=== PATIENT | female | born 1985 | race Caucasian/White ===

== ENCOUNTER 2016-09-11 17:58 | Emergency (ER) | payer MEDICAID ==
[2016-05-05 05:57] VITALS: BMI 17.4
[~2016-09-11 17:58] MED LIST: ALDACTONE50 MG PO; ATIVAN1 MG; INDERAL10 MG PO; MIRALAX17 GM PO; TRANXENE7.5 MG PO; ZYPREXA10 MG PO
[2016-09-11 19:13] LABS: BASOPHILS 0.4 % (0-2); EOSINOPHILS 0.8 % (0-7); HEMATOCRIT 34.4 % (36.0-48.0); HEMOGLOBIN 11.8 g/dL (12-16); IMMATURE GRANULOCYTES 0.2 % (0-5); LYMPHOCYTES 24.8 % (15-50); MCH 31.6 pg (26.0-34.0); MCHC 34.3 g/dL (31.0-37.0); MEAN PLATELET VOLUME 9.2 fL (7.4-10.4); MONOCYTES 8.4 % (2-11); NEUTROPHILS 65.4 % (40-80); RBC 3.74 10x6/uL (4.00-5.40); RDW 12.3 % (11.5-14.5)
[2016-09-11 19:14] LABS: PLATELET COUNT 382 10x3/uL (130-400)
[2016-09-11 19:26] LABS: HCG URINE NEGATIVE (NEGATIVE)
[2016-09-11 19:37] LABS: APPEARANCE HAZY (CLEAR); BILIRUBIN NEGATIVE (NEGATIVE); COLOR YELLOW (YELLOW); GLUCOSE NEGATIVE (NEGATIVE); KETONE NEGATIVE (NEGATIVE); LEUKOCYTE ESTERASE TRACE (NEGATIVE); NITRITE NEGATIVE (NEGATIVE); PROTEIN NEGATIVE (NEGATIVE); SPECIFIC GRAVITY 1.015 (1.005-1.020); UROBILINOGEN NORMAL (NORMAL)
[2016-09-11 19:39] LABS: BACTERIA MODERATE /hpf (NONE SEEN); CALCIUM OXALATE CRYSTALS 0-5 /hpf (NONE SEEN); EPITHELIAL CELLS 0-5 /hpf (0-5); MUCUS >1+ /lpf (NONE SEEN); RED CELLS - URINE 0-5 /hpf (0-5); WHITE CELLS - URINE 0-5 /hpf (0-5)
[2016-09-11 19:45] LABS: ALBUMIN 4.2 g/dL (3.4-5.0); ALKALINE PHOSPHATASE 56 U/L (46-116); ALT (SGPT) 29 U/L (10-68); AMYLASE - SERUM 67 U/L (25-115); BILIRUBIN - TOTAL 0.59 mg/dL (0.2-1.3); CALC OSMOLALITY 279 mosm/kg (275-300); CALCIUM 10.5 mg/dL (8.5-10.1); CARBON DIOXIDE 27.6 mmol/L (21.0-32.0); CHLORIDE - SERUM 102 mmol/L (98-107); CREATININE - SERUM 0.9 mg/dL (0.6-1.3); GLUCOSE 93 mg/dL (74-106); LIPASE 306 U/L (73-393); POTASSIUM - SERUM 3.9 mmol/L (3.5-5.1); SODIUM 140 mmol/L (136-145); UREA NITROGEN 15 mg/dL (7-18); eGFR NON AFRICAN AMERICAN 77 mL/min (90-120)
== END 2016-09-11 22:18 | disposition home or self-care (01) ==
LOC: D.ER 17:58
PROVIDERS: Nurse Practitioner Family
DX: E86.0 Dehydration (principal); G89.18 Other acute postprocedural pain; I10 Essential (primary) hypertension; K59.00 Constipation, unspecified

== ENCOUNTER 2016-09-22 05:15 | Day surgery (SDC) | payer MEDICAID ==
[~2016-09-22] VITALS: Ht 160 cm; Wt 43.1 kg
--- NOTE | ~2016-09-22 | OP ---
PATIENT NAME: NEGRO BUCK MEDICAL RECORD: [id number] :83 LOCATION:D.OPS ADMISSION DATE: SURGEON: ANTONIA OROZCO MD DATE OF OPERATION: 09/22/2016 PREOPERATIVE DIAGNOSIS: Retraction of previous Pfannenstiel skin incision. POSTOPERATIVE DIAGNOSIS: Retraction of previous Pfannenstiel skin incision. PROCEDURE: Revision of Pfannenstiel scar. SURGEON: Antonia Orozco MD ESTIMATED BLOOD LOSS: 50 cc. INTRAVENOUS FLUIDS: Per anesthesia record. PROCEDURE: The patient was taken to the operating room where general anesthesia was achieved without difficulty. The patient was then prepped and draped in normal sterile fashion in the supine position. SCDs were functioning. At this point, the limits of the Pfannenstiel scar were defined with a surgical marker. An elliptical incision was performed around the scar and the scar was very superficially excised from the underlying tissue. During dissection it became apparent that the skin was fused directly to the fascia due to the patient having miniscule amounts of body fat. The skin was then gently dissected from the fascia. One area where the fascia had been superficially dissected was oversewn with 2-0 Vicryl. Following careful dissection of the skin from the underlying rectus fascia, multiple areas were cauterized using the Bovie cautery until good hemostasis was noted. Interceed was then placed on top of the fascial/scar layer and the skin was repaired with 3-0 Monocryl in a running subcutaneous fashion with anchors knotted approximately 1 cm lateral to each side of the incision. Good hemostasis was again noted. Suture line was then covered with Dermabond and a pressure dressing placed on. The patient tolerated the procedure well, was transferred to postanesthesia recovery stable without incident. TRANSINT:[id number] Voice Confirmation ID: [id number] DOCUMENT ID: [id number] ANTONIA OROZCO MD CC: [id number] DICTATION DATE: 09/22/16 0833 BAGGAGE CLERK: 09/22/16 1102 [facility] 09/22/16 [place] [id number]
[~2016-09-22 05:15] MED LIST changes: -ATIVAN1 MG; +ATIVAN1 MG PO
[2016-09-22 06:17] LABS: HCG URINE NEGATIVE (NEGATIVE)
[2016-09-22 06:18] VITALS: BP 119/84; Ht 160 cm; Wt 43.1 kg
[2016-09-22 06:42] LABS: HEMATOCRIT 35.4 % (36.0-48.0); MCH 31.7 pg (26.0-34.0); MCHC 33.9 g/dL (31.0-37.0); MCV 93.7 fL (80.0-100.0); MEAN PLATELET VOLUME 10.3 fL (7.4-10.4); RBC 3.78 10x6/uL (4.00-5.40); RDW 12.5 % (11.5-14.5)
--- NOTE | 2016-09-22 08:58 | NUR ---
PATIENT GIVEN 25 DEMEROL AND 1 MG DILAUDID. AFTER SECOND DOSE OF 0.5 DILAUDID PATIENT FELL ASLEEP AND O2 DROPPED SUDDENLY. PATIENT REPOSITIONED AND O2 MASK PLACED ON PATIENT AT 10L UNTIL PATIENT AWOKE.
== END 2016-09-22 10:30 | disposition home or self-care (01) ==
LOC: D.OPS 05:15 → D.PAN 07:30 → D.OPS 10:30
PROVIDERS: Anesthesiology; Obstetrics & Gynecology
DX: L90.5 Scar conditions and fibrosis of skin (principal); K58.1 Irritable bowel syndrome with constipation; Z90.49 Acquired absence of other specified parts of digestive tract; F31.9 Bipolar disorder, unspecified; I10 Essential (primary) hypertension; R00.0 Tachycardia, unspecified; F32.9 Major depressive disorder, single episode, unspecified; F41.9 Anxiety disorder, unspecified; Z79.899 Other long term (current) drug therapy; Z88.8 Allergy status to other drugs, medicaments and biological substances; Z01.812 Encounter for preprocedural laboratory examination

== ENCOUNTER 2016-09-29 11:14 | Outpatient (CLI) | payer MEDICAID ==
[2016-09-22 06:18] VITALS: BMI 16.8
[2016-09-29 11:43] VITALS: BP 126/82
[2016-09-29] MEDS ORDERED: DILAUDID2 MG PO (11:47)
[2016-09-29 12:14] LABS: BASOPHILS 0.2 % (0-2); EOSINOPHILS 0.5 % (0-7); HEMATOCRIT 37.2 % (36.0-48.0); HEMOGLOBIN 12.7 g/dL (12-16); IMMATURE GRANULOCYTES 0.2 % (0-5); LYMPHOCYTES 24.8 % (15-50); MCH 31.6 pg (26.0-34.0); MCHC 34.1 g/dL (31.0-37.0); MCV 92.5 fL (80.0-100.0); MEAN PLATELET VOLUME 10.6 fL (7.4-10.4); MONOCYTES 7.5 % (2-11); NEUTROPHILS 66.8 % (40-80); PLATELET COUNT 186 10x3/uL (130-400); RBC 4.02 10x6/uL (4.00-5.40); RDW 12.4 % (11.5-14.5); WBC 4.3 10x3/uL (4.8-10.8)
[2016-09-29 12:30] LABS: ALBUMIN 4.5 g/dL (3.4-5.0); ALKALINE PHOSPHATASE 57 U/L (46-116); ALT (SGPT) 20 U/L (10-68); BILIRUBIN - TOTAL 0.78 mg/dL (0.2-1.3); CALC OSMOLALITY 285 mosm/kg (275-300); CALCIUM 9.8 mg/dL (8.5-10.1); CARBON DIOXIDE 29.3 mmol/L (21.0-32.0); CHLORIDE - SERUM 105 mmol/L (98-107); CREATININE - SERUM 0.8 mg/dL (0.6-1.3); GLUCOSE 93 mg/dL (74-106); POTASSIUM - SERUM 3.8 mmol/L (3.5-5.1); PROTEIN - SERUM 8.1 g/dL (6.4-8.2); SODIUM 142 mmol/L (136-145); UREA NITROGEN 20 mg/dL (7-18); eGFR NON AFRICAN AMERICAN 88 mL/min (90-120)
[2016-09-29 14:12] LABS: APPEARANCE HAZY (CLEAR); BILIRUBIN NEGATIVE (NEGATIVE); COLOR YELLOW (YELLOW); GLUCOSE 1000 mg/dL (NEGATIVE); KETONE NEGATIVE (NEGATIVE); LEUKOCYTE ESTERASE NEGATIVE (NEGATIVE); NITRITE NEGATIVE (NEGATIVE); PROTEIN NEGATIVE (NEGATIVE); UROBILINOGEN NORMAL (NORMAL)
== END 2016-09-29 13:30 | disposition home or self-care (01) ==
LOC: D.LDO 11:14
PROVIDERS: Obstetrics & Gynecology
DX: R19.7 Diarrhea, unspecified (principal); Z90.49 Acquired absence of other specified parts of digestive tract

== ENCOUNTER 2017-02-23 07:57 | Observation (INO) | payer MEDICAID ==
[~2017-02-23 07:57] MED LIST changes: +DILAUDID2 MG PO
--- NOTE | 2017-02-23 08:30 | NUR ---
RECEIVED PT A DIRECT ADMIT FROM DR DOVER'S OFFICE. HE STATES THAT SHE IS HAVING PELVIC PAIN. PT ARRIVED ON THE FLOOR. SHE STATES THAT SHE IS HURTING IN HER PERINEAL AREA. SHE STATES THAT SHE HAS HAD BLOOD IN HER URINE ALSO. THIS STARTED YESTERDAY.GEN- PT AMBULATED FROM HIS OFFICE. GEN- AWAKE AND ALERT. GRIMACES IF IN PAIN. LUNGS- CLEAR. HEART- RRR. ABD- SOFT WITH TENDERNESS LOWER ABDOMEN. EXT-NO EDEMA.
[2017-02-23 10:35] LABS: BASOPHILS 0.2 % (0-2); EOSINOPHILS 0.3 % (0-7); HEMATOCRIT 34.9 % (36.0-48.0); HEMOGLOBIN 11.8 g/dL (12-16); IMMATURE GRANULOCYTES 0.3 % (0-5); LYMPHOCYTES 18.8 % (15-50); MCH 29.6 pg (26.0-34.0); MCHC 33.8 g/dL (31.0-37.0); MCV 87.7 fL (80.0-100.0); MEAN PLATELET VOLUME 9.9 fL (7.4-10.4); MONOCYTES 7.1 % (2-11); NEUTROPHILS 73.3 % (40-80); PLATELET COUNT 205 10x3/uL (130-400); RBC 3.98 10x6/uL (4.00-5.40); RDW 12.2 % (11.5-14.5); WBC 6.1 10x3/uL (4.8-10.8)
--- NOTE | 2017-02-23 10:55 | NUR ---
20 G CATH X 1 ATTEMPT TO RIGHT FOREARM WITH 1/2 NS UP AND INFUSING AT 999 ML/HR PER ORDER TO BOLUS. PT JUDE WELL. PT INSTRUCTED ON NPO STATUS FOR CT SCAN. PT AGREES, AND DENIES OTHER NEEDS. SR UP X2, CALL LIGHT AND PHONE WITHIN REACH.
[2017-02-23 10:59] LABS: ALKALINE PHOSPHATASE 43 U/L (46-116); ALT (SGPT) 13 U/L (10-68); BILIRUBIN - TOTAL 0.79 mg/dL (0.2-1.3); CALC OSMOLALITY 271 mosm/kg (275-300); CALCIUM 8.9 mg/dL (8.5-10.1); CARBON DIOXIDE 23.2 mmol/L (21.0-32.0); CHLORIDE - SERUM 104 mmol/L (98-107); CREATININE - SERUM 0.8 mg/dL (0.6-1.3); GLUCOSE 97 mg/dL (74-106); POTASSIUM - SERUM 3.9 mmol/L (3.5-5.1); PROTEIN - SERUM 7.3 g/dL (6.4-8.2); SODIUM 136 mmol/L (136-145); UREA NITROGEN 13 mg/dL (7-18); eGFR NON AFRICAN AMERICAN 87 mL/min (90-120)
--- NOTE | 2017-02-23 11:30 | NUR ---
PT TAKEN VIA WHEELCHAIR TO XRAY FOR CT OF ABD/PEL
--- NOTE | 2017-02-23 12:19 | NUR ---
PT RETURNED TO ROOM FROM HAVING CT SCAN. IV HOOKED BACK UP. BED IS LOW, SIDE RAILS UP X 2 AND CALL LIGHT IN REACH.
[2017-02-23 12:56] LABS: APPEARANCE HAZY (CLEAR); BILIRUBIN NEGATIVE (NEGATIVE); COLOR STRAW (YELLOW); GLUCOSE NEGATIVE (NEGATIVE); KETONE NEGATIVE (NEGATIVE); NITRITE NEGATIVE (NEGATIVE); PROTEIN NEGATIVE (NEGATIVE); SPECIFIC GRAVITY 1.005 (1.005-1.020); UROBILINOGEN NORMAL (NORMAL)
[2017-02-23 12:57] LABS: BACTERIA FEW /hpf (NONE SEEN); EPITHELIAL CELLS 0-5 /hpf (0-5); RED CELLS - URINE 0-5 /hpf (0-5); WHITE CELLS - URINE 25-50 /hpf (0-5)
--- NOTE | 2017-02-23 12:59 | NUR ---
URINE SENT TO [facility] FOR URINALYSIS AND CULTURE
--- NOTE | 2017-02-23 14:23 | NUR ---
REPORT OF CT REVIEWED. CALLED DR DOVER WITH RESULTS.
--- NOTE | 2017-02-23 14:43 | NUR ---
DR DOVER CALLED AND STATED TO DISCHARGE PT TO HOME. HE IS GOING TO CALL ANTIBIOTICS TO [facility] FOR HER AND TREAT HER FOR A UTI
[2017-02-23 15:51] VITALS: BP 111/79; BMI 17.7
--- NOTE | 2017-02-23 15:59 | NUR ---
PT WAS DISCHARGED HOME TODAY. INSTRUCTIONS GIVEN
[2017-02-23 16:00] VITALS: BP 111/79
--- NOTE | 2017-03-21 09:56 | DS ---
PATIENT:NEGRO BUCK :83 MEDICAL RECORD: [id number] DISCHARGE SUMMARY ADMISSION DATE: 02/23/17 DISCHARGE DATE: 02/23/17 HOSPITAL COURSE: The patient was admitted on 02/23/2017 with severe back pain consistent with nephrolithiasis and urinary retention. PAST MEDICAL HISTORY: Significant for; 1. Colonic inertia disorder. 2. History of nephrolithiasis. 3. History of bipolar disorder. 4. Polycystic ovarian syndrome. 5. Borderline chronic hypertension. PAST SURGICAL HISTORY: Significant for; 1. Previous section. 2. Cystoscopy. 3. Breast augmentation. 4. Operative laparoscopy and lysis of adhesions. 5. The patient also was noted to have a total laparoscopic colectomy. ALLERGIES: SIGNIFICANT FOR MORPHINE AND PROMETHAZINE. MEDICATIONS: Included Dilaudid, propranolol, Ativan and Aldactone. FAMILY HISTORY: The patient reported a family history significant for a parent with cardiovascular disease. SOCIAL HISTORY: Was former tobacco user. PHYSICAL EXAMINATION: VITAL SIGNS: On initial exam vital signs are stable. The patient was afebrile. LUNGS: Clear to auscultation. CARDIOVASCULAR: Regular rate and rhythm. BACK: No CVA tenderness was noted. EXTREMITIES: Lower extremities were free of Homans sign. ASSESSMENT AND PLAN: At that time; 1. Back and abdominal pain. 3. Urinary retention. 3. Suspected nephrolithiasis. 4. Colonic dysfunction, status post colectomy. A CT scan was ordered at that time for nephrolithiasis. The patient was given IV Dilaudid and hydrated. CBC and CMP were checked. Urinalysis was significant for urinary tract infection. The patient was started on antibiotics. CT scan was negative for nephrolithiasis and patient on IV antibiotic therapy had less urinary symptoms and urinary retention resolved. The patient was discharged home on hospital day #2 with Bactrim. Instructions to follow up for urine culture results. TRANSINT:[id number] Voice Confirmation ID: [id number] DOCUMENT ID: [id number] DISCHARGE SUMMARY REPORT [id number] CIELOQIANANEGROANTONIA MOROCHO MD at 0956 CC: [id number] DICTATION DATE: 03/19/17 1354 PLAN EXAMINER: 03/20/17 0301 [facility] [place] 02/23/17 [place] [id number] [place], [place] [id number]
== END 2017-02-23 16:25 | disposition home or self-care (01) ==
LOC: OBSVTIME 07:57 → D.WS 07:57 → OBSVTIME 15:51 → D.WS 16:25
PROVIDERS: ADMIT Obstetrics & Gynecology
DX: N12 Tubulo-interstitial nephritis, not specified as acute or chronic (principal); K59.9 Functional intestinal disorder, unspecified; F41.9 Anxiety disorder, unspecified; F32.9 Major depressive disorder, single episode, unspecified

== ENCOUNTER 2017-07-18 08:36 | Inpatient (IN) | payer MEDICAID ==
[2017-07-18 09:26] LABS: APPEARANCE CLEAR (CLEAR); BILIRUBIN NEGATIVE (NEGATIVE); COLOR YELLOW (YELLOW); GLUCOSE NEGATIVE (NEGATIVE); KETONE NEGATIVE (NEGATIVE); NITRITE NEGATIVE (NEGATIVE); PROTEIN NEGATIVE (NEGATIVE); UROBILINOGEN NORMAL (NORMAL)
[2017-07-18 09:37] LABS: BASOPHILS 0.2 % (0-2); EOSINOPHILS 0.2 % (0-7); HEMATOCRIT 29.4 % (36.0-48.0); HEMOGLOBIN 9.2 g/dL (12-16); IMMATURE GRANULOCYTES 0.2 % (0-5); LYMPHOCYTES 24.8 % (15-50); MCH 25.6 pg (26.0-34.0); MCHC 31.3 g/dL (31.0-37.0); MCV 81.9 fL (80.0-100.0); MEAN PLATELET VOLUME 9.8 fL (7.4-10.4); MONOCYTES 9.9 % (2-11); NEUTROPHILS 64.7 % (40-80); PLATELET COUNT 226 10x3/uL (130-400); RBC 3.59 10x6/uL (4.00-5.40); RDW 13.4 % (11.5-14.5)
[2017-07-18 09:53] LABS: ALBUMIN 4.3 g/dL (3.4-5.0); ALKALINE PHOSPHATASE 43 U/L (46-116); ALT (SGPT) 14 U/L (10-68); AMYLASE - SERUM 62 U/L (25-115); BILIRUBIN - TOTAL 0.47 mg/dL (0.2-1.3); CALC OSMOLALITY 275 mosm/kg (275-300); CALCIUM 9.3 mg/dL (8.5-10.1); CARBON DIOXIDE 25.8 mmol/L (21.0-32.0); CHLORIDE - SERUM 103 mmol/L (98-107); CREATININE - SERUM 0.9 mg/dL (0.6-1.3); GLUCOSE 95 mg/dL (74-106); LIPASE 247 U/L (73-393); POTASSIUM - SERUM 4.2 mmol/L (3.5-5.1); PROTEIN - SERUM 7.7 g/dL (6.4-8.2); SODIUM 138 mmol/L (136-145); UREA NITROGEN 12 mg/dL (7-18); eGFR NON AFRICAN AMERICAN 76 mL/min (90-120)
[2017-07-18 09:59] LABS: HELICOBACTER PYLORI IGG NEGATIVE (NEGATIVE)
[2017-07-18] MEDS ORDERED: ZOFRAN4 MG PO (17:13)
[2017-07-18] MEDS ORDERED: GAS-X125 M1 PO (17:15)
[2017-07-18] MEDS ORDERED: IBUPROFEN400 MG PO (17:16)
[2017-07-18] MEDS ORDERED: LAMICTAL XR200 MG PO (17:24)
[2017-07-18 19:26] VITALS: BP 121/82
[2017-07-19 04:11] VITALS: BP 121/82
[2017-07-19 07:23] VITALS: BP 120/79
[2017-07-19] MEDS ORDERED: LAMICTAL XR200 MG PO (08:36)
[2017-07-19 10:55] VITALS: BMI 17.7
[2017-07-19 11:35] VITALS: BP 126/81
[2017-07-19 13:01] LABS: % SATURATION 11 % (15-55); IRON 40 ug/dl (35-150); TOTAL IRON BIND CAPACITY 344 ug/dl (260-445); UNSAT IRON BIND CAPACITY 304 ug/dl (150-375)
[2017-07-19 20:09] VITALS: BP 126/86
[2017-07-20 06:22] LABS: BASOPHILS 0 % (0-2); HEMATOCRIT 26.6 % (36.0-48.0); HEMOGLOBIN 8.2 g/dL (12-16); LYMPHOCYTES 22.5 % (15-50); MCH 25.3 pg (26.0-34.0); MCHC 30.8 g/dL (31.0-37.0); MCV 82.1 fL (80.0-100.0); MEAN PLATELET VOLUME 9.9 fL (7.4-10.4); NEUTROPHILS 67.5 % (40-80); RBC 3.24 10x6/uL (4.00-5.40); RDW 13.4 % (11.5-14.5); WBC 3.9 10x3/uL (4.8-10.8)
[2017-07-20 06:28] LABS: PLATELET COUNT 179 10x3/uL (130-400)
[2017-07-20 07:06] LABS: CALC OSMOLALITY 278 mosm/kg (275-300); CALCIUM 8.3 mg/dL (8.5-10.1); CARBON DIOXIDE 27.4 mmol/L (21.0-32.0); CHLORIDE - SERUM 107 mmol/L (98-107); CREATININE - SERUM 0.8 mg/dL (0.6-1.3); GLUCOSE 95 mg/dL (74-106); POTASSIUM - SERUM 3.9 mmol/L (3.5-5.1); SODIUM 141 mmol/L (136-145); eGFR NON AFRICAN AMERICAN 87 mL/min (90-120)
[2017-07-20 07:08] LABS: UREA NITROGEN 6 mg/dL (7-18)
[2017-07-20 07:31] LABS: FOLATE (FOLIC ACID) - SERUM 10.2 ng/mL (>3.0)
[2017-07-20 09:15] VITALS: BP 128/76
[2017-07-20] MEDS ORDERED: PROTONIX40 MG PO ×2 (16:19→16:20)
[2017-07-20] MEDS ORDERED: PEPCID40 MG PO ×2 (16:19→16:20)
== END 2017-07-20 17:30 | disposition home or self-care (01) | DRG 381 ==
LOC: D.ER 08:36 → D.EDHOLD 11:30 → D.LD 11:30 → OBSVTIME 11:31 → D.LD 15:44
PROVIDERS: Emergency Medicine; Internal Medicine Gastroenterology; Internal Medicine Nephrology
PROC: 0DB78ZX Excision of Stomach, Pylorus, Via Natural or Artificial Opening Endoscopic, Diagnostic (ICD-10-PCS; 2017-07-19)
PROC: 0DB58ZX Excision of Esophagus, Via Natural or Artificial Opening Endoscopic, Diagnostic (ICD-10-PCS; 2017-07-19)
PROC: 0DB98ZX Excision of Duodenum, Via Natural or Artificial Opening Endoscopic, Diagnostic (ICD-10-PCS; principal; 2017-07-19 17:15)
DX: K22.10 Ulcer of esophagus without bleeding (principal); F31.30 Bipolar disorder, current episode depressed, mild or moderate severity, unspecified; K25.9 Gastric ulcer, unspecified as acute or chronic, without hemorrhage or perforation; K44.9 Diaphragmatic hernia without obstruction or gangrene; K29.80 Duodenitis without bleeding; I10 Essential (primary) hypertension; F41.9 Anxiety disorder, unspecified; R68.81 Early satiety; K59.09 Other constipation; D50.9 Iron deficiency anemia, unspecified; N28.1 Cyst of kidney, acquired; Z87.891 Personal history of nicotine dependence

== ENCOUNTER 2017-08-04 13:38 | Outpatient (CLI) | payer MEDICAID ==
[~2017-08-04] VITALS: Ht 160 cm; Wt 45.9 kg
[~2017-08-04 13:38] MED LIST changes: +GAS-X125 M1 PO; +IBUPROFEN400 MG PO; +LAMICTAL XR200 MG PO; +PEPCID40 MG PO; +PROTONIX40 MG PO; +ZOFRAN4 MG PO
[2017-08-04 14:07] VITALS: BP 108/77; Ht 160 cm; Wt 45.9 kg
== END 2017-08-04 15:10 | disposition home or self-care (01) ==
LOC: D.OPS 13:38 → EDSTATUS 14:30 → D.OPS 15:10
DX: D64.9 Anemia, unspecified (principal)

== ENCOUNTER 2018-01-04 13:02 | Outpatient (CLI) | payer MEDICAID ==
[~2018-01-04] VITALS: Ht 160 cm; Wt 52.2 kg
[2018-01-04 14:21] LABS: ALBUMIN 3.9 g/dL (3.4-5.0); ALKALINE PHOSPHATASE 60 U/L (46-116); ALT (SGPT) 15 U/L (10-68); BILIRUBIN - TOTAL 0.29 mg/dL (0.2-1.3); CALC OSMOLALITY 278 mosm/kg (275-300); CALCIUM 8.8 mg/dL (8.5-10.1); CARBON DIOXIDE 29.6 mmol/L (21.0-32.0); CHLORIDE - SERUM 106 mmol/L (98-107); CREATININE - SERUM 0.8 mg/dL (0.6-1.3); GLUCOSE 108 mg/dL (74-106); POTASSIUM - SERUM 4.1 mmol/L (3.5-5.1); PROTEIN - SERUM 7.3 g/dL (6.4-8.2); SODIUM 140 mmol/L (136-145); UREA NITROGEN 10 mg/dL (7-18); eGFR NON AFRICAN AMERICAN 87 mL/min (90-120)
[2018-01-04 16:09] VITALS: Ht 160 cm; Wt 52.2 kg
== END 2018-01-04 22:45 | disposition home or self-care (01) ==
LOC: D.LDO 13:02
PROVIDERS: Obstetrics & Gynecology
DX: O26.899 Other specified pregnancy related conditions, unspecified trimester (principal); Z3A.00 Weeks of gestation of pregnancy not specified

== ENCOUNTER → 2018-01-15 09:42 | Outpatient (CLI) | payer MEDICAID | END | disposition home or self-care (01) | LOC: D.US 09:42 | DX: I65.21 Occlusion and stenosis of right carotid artery (principal) ==

== ENCOUNTER 2019-12-18 11:43 | Emergency (ER) | payer SELFPAY ==
[~2019-12-18] VITALS: Ht 160 cm; Wt 44.7 kg
[2019-12-18 12:06] VITALS: Ht 160 cm; Wt 44.7 kg
[2019-12-18] MEDS ORDERED: PROPRANOLOL HCL20 MG PO (12:09)
[2019-12-18] MEDS ORDERED: BUPROPION HCL100 M1 PO (12:09)
[2019-12-18 12:53] LABS: BASOPHILS 0.2 % (0-2); CALC OSMOLALITY 275 mosm/kg (275-300); CALCIUM 9.2 mg/dL (8.5-10.1); CARBON DIOXIDE 28.9 mmol/L (21.0-32.0); CHLORIDE - SERUM 103 mmol/L (98-107); CREATININE - SERUM 0.9 mg/dL (0.6-1.3); EOSINOPHILS 1.1 % (0-7); GLUCOSE 84 mg/dL (74-106); IMMATURE GRANULOCYTES 0.2 % (0-5); LYMPHOCYTES 27.8 % (15-50); MCH 32.1 pg (26.0-34.0); MCHC 34.2 g/dL (31.0-37.0); MCV 93.8 fL (80.0-100.0); MEAN PLATELET VOLUME 9.7 fL (7.4-10.4); MONOCYTES 10.2 % (2-11); NEUTROPHILS 60.5 % (40-80); PLATELET COUNT 242 10x3/uL (130-400); POTASSIUM - SERUM 3.9 mmol/L (3.5-5.1); RBC 4.05 10x6/uL (4.00-5.40); RDW 12.1 % (11.5-14.5); SODIUM 138 mmol/L (136-145); UREA NITROGEN 14 mg/dL (7-18); WBC 4.7 10x3/uL (4.8-10.8); eGFR NON AFRICAN AMERICAN 75 mL/min (90-120)
[2019-12-18 13:06] LABS: APTT 33.6 SECONDS (22.8-39.4); INR 1.09 (0.85-1.17)
[2019-12-18 13:07] LABS: ALBUMIN 4.2 g/dL (3.4-5.0); ALKALINE PHOSPHATASE 61 U/L (30-120); ALT (SGPT) 14 U/L (10-68); AMYLASE - SERUM 61 U/L (25-115); BILIRUBIN - TOTAL 0.44 mg/dL (0.2-1.3); CKMB 0.5 U/L (0.0-3.6); CREATINE KINASE 73 UL (21-215); LIPASE 226 U/L (73-393); PROTEIN - SERUM 7.3 g/dL (6.4-8.2); TROPONIN-I < 0.017 ng/mL (0.000-0.060)
[2019-12-18 14:07] LABS: BILIRUBIN NEGATIVE (NEGATIVE); GLUCOSE NEGATIVE (NEGATIVE); KETONE NEGATIVE (NEGATIVE); NITRITE NEGATIVE (NEGATIVE); UROBILINOGEN NORMAL (NORMAL)
[2019-12-18 14:09] LABS: HCG URINE NEGATIVE (NEGATIVE)
[2019-12-18 14:16] LABS: HCG SERUM NEGATIVE (NEGATIVE)
[2019-12-18 16:53] VITALS: BP 123/86
== END 2019-12-18 16:53 | disposition home or self-care (01) ==
LOC: D.ER 11:43
PROVIDERS: Family Medicine
DX: I10 Essential (primary) hypertension (principal); Z20.828 Contact with and (suspected) exposure to other viral communicable diseases; R11.2 Nausea with vomiting, unspecified

== ENCOUNTER → 2020-08-11 15:11 | Outpatient (CLI) | payer BC ==
[2019-12-18 12:06] VITALS: BMI 17.4
[~2020-08-11 15:11] MED LIST changes: +BUPROPION HCL100 M1 PO; +PROPRANOLOL HCL20 MG PO
== END | disposition home or self-care (01) ==
LOC: D.MRI 15:11
PROVIDERS: ATTEND Obstetrics & Gynecology
DX: M25.469 Effusion, unspecified knee (principal)